=== PATIENT | male | born 1975 | race Two or more races ===

== ENCOUNTER 2018-03-24 21:42 | Emergency (ER) | payer MEDICAID ==
[2018-03-24] MEDS ORDERED: ONDANSETRON DISINTEGRATING 4 MG TAB PO ONE (22:05)
[2018-03-24 22:12] LABS: PLATELET COUNT 137 10^3/uL (150-400)
[2018-03-24] MEDS ORDERED: FAMOTIDINE 20 MG TAB PO ONE (22:43)
[2018-03-24] MEDS ORDERED: LORazepam 1 MG TAB PO ONE (22:43)
--- NOTE | 2018-03-24 22:47 | EDPHY ---
H & P Stated Complaint: M-1 HOLD, NEEDS MED CLEARANCE Source: Patient - Personal History Current Tetanus/Diphtheria Vaccine: Yes Current Tetanus Diphtheria and Acellular Pertussis (TDAP): Yes - Medical/Surgical History Hx Asthma: No Hx Chronic Respiratory Disease: No Hx Diabetes: No Hx Cardiac Disease: No Hx Renal Disease: No Hx Cirrhosis: No Hx Alcoholism: No Hx HIV/AIDS: No Hx Splenectomy or Spleen Trauma: No Other PMH: ANXIETY/ DEPRESSION, ETOH - Social History Smoking Status: Never smoked Time Seen by Provider: 03/24/18 22:12 HPI/ROS: HPI The patient presents with medical clearance, currently on an M1 hold for suicide attempt earlier today. The patient was evaluated at [facility] where M1 hold was initiated. He at about 4:00 a.m. This morning tried to hang himself in his car with a strap. He also took hydroxyzine approximately 5 tabs at 5:00 a.m.. He has been drinking heavily throughout the day today, and drink several shots of alcohol before entering into the [facility] crisis [facility]. He says he suffers from anxiety, was recently in a CSU. He says the last 1 month he has been dealing with increased stress at home. He is the father to a 9-month-old child and he is living with his in-laws and the mother of his child currently. The in-laws have multiple medical needs and seem both terminally ill. 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 He does complain of 1 episode of vomiting which happened just prior to arrival. He attributes this to his alcohol use. REVIEW OF SYSTEMS Constitutional: No fever, no chills. Eyes: No discharge. ENT: No sore throat. Cardiovascular: No chest pain, no palpitations. Respiratory: No cough, no shortness of breath. Gastrointestinal: No abdominal pain, 1 episode of vomiting. Genitourinary: No hematuria. Musculoskeletal: No back pain. Skin: No rashes. Neurological: No headache. PMHx: Anxiety Soc Hx: Alcohol use, cigarette smoker, family lives in [place], he is currently living in [place] PHYSICAL General Appearance: Alert, no distress Eyes: Pupils equal and round no pallor or injection ENT, Mouth: Mucous membranes moist Respiratory: There are no retractions, lungs are clear to auscultation Cardiovascular: Regular rate and rhythm Gastrointestinal: Abdomen is soft and non-tender, no masses, bowel sounds normal Neurological: A&O, moves all extremities Skin: Warm and dry, no rashes Musculoskeletal: Neck is supple non tender Extremities: symmetrical, full range of motion Psychiatric: Patient is oriented X 3, there is no agitation , tearful at times (Cheli Fuller) Constitutional: Initial Vital Signs Temperature (C) 36.5 C 03/24/18 21:47 Heart Rate 104 H 03/24/18 21:47 Respiratory Rate 18 03/24/18 21:47 Blood Pressure 148/97 H 03/24/18 21:47 O2 Sat (%) 97 03/24/18 21:47 O2 Delivery Mode Room Air Allergies/Adverse Reactions: No Known Allergies Allergy (Unverified 03/24/18 21:54) Home Medications: Medication Instructions Recorded NK [No Known Home Meds] 03/24/18 Medical Decision Making Differential Diagnosis: 43-year-old male with history of anxiety presents on M1 hold after suicide attempt. He hung himself with a strap in his car and also took a handful of hydroxyzine. This happened now about 16 hr ago. He has no shortness of breath or wheezing. He has no external signs of trauma of his neck. Given that he took the hydroxyzine so many hours ago, he is clear from this standpoint as well. We will treat his nausea and vomiting with antiemetics. We will treat him for any alcohol withdrawal and anxiety. Differential diagnosis includes progressive anxiety with suicidal ideation, acute stress response, substance abuse. 6:30 a.m.- The patient was monitored overnight and slept for much of it. He does not appear to be exhibiting any signs of alcohol withdrawal. He has not had any ongoing vomiting. He is medically clear and awaiting psychiatric evaluation. Anticipate at 7:00 a.m. The case will be signed out to Dr. Kc pending evaluation. (Cheli Fuller) 7:00 a.m.-I assumed care of this patient at shift change. He presents with suicidal ideation on an M1 hold. 10:30 a.m.-this patient has been seen by mental health and felt appropriate for admission to a CSU. Looking for disposition. 3:00 p.m.-signed over to Dr. Lara at shift change. Disposition pending. ( Huong Kc) Other Provider: I assumed care of this patient from Dr. Huong Kc at 3:00 p.m., change of shift. We are awaiting placement. Informed by the nursing staff that the patient has been accepted at [facility]. Patient was transferred at the 8:35 p.m.. He did receive 1 mg of Ativan secondary to anxiety at 6:45 p.m.. (Ariadna Lara) - Data Points Laboratory Results: Laboratory Results 03/24/18 21:50 03/24/18 21:50 Medications Given: Discontinued Medications Famotidine (Pepcid) 20 mg PO EDNOW ONE Stop: 03/24/18 22:44 Last Admin: 03/24/18 22:58 Dose: 20 mg Lorazepam (Ativan) 1 mg PO EDNOW ONE Stop: 03/24/18 22:44 Last Admin: 03/24/18 22:58 Dose: 1 mg Lorazepam (Ativan) 1 mg PO EDNOW ONE Stop: 03/25/18 06:21 Last Admin: 03/25/18 06:21 Dose: 1 mg Lorazepam (Ativan) 1 mg PO EDNOW ONE Stop: 03/25/18 10:36 Last Admin: 03/25/18 10:39 Dose: 1 mg Lorazepam (Ativan) 1 mg PO EDNOW ONE Stop: 03/25/18 18:43 Last Admin: 03/25/18 18:43 Dose: 1 mg Nicotine (Nicoderm Cq) 21 mg TD EDNOW ONE Stop: 03/24/18 22:55 Last Admin: 03/25/18 15:36 Dose: 21 mg Nicotine (Nicoderm Cq) 21 mg TD EDNOW ONE Stop: 03/25/18 15:34 Last Admin: 03/25/18 15:41 Dose: Not Given Ondansetron HCl (Zofran Odt) 4 mg PO EDNOW ONE Stop: 03/24/18 22:06 Last Admin: 03/24/18 22:10 Dose: 4 mg Departure - Departure Disposition: Other Psych, Not [place] Clinical Impression: Attempted suicide Condition: Fair Referrals: NONE *PRIMARY CARE P,. [Primary Care Provider] - As per Instructions
[2018-03-24] MEDS: NICOTINE 21 MG/24 HR PATCH TD ONE (22:58)
[2018-03-25] MEDS ORDERED: LORazepam 1 MG TAB ONE ×2 (06:19→18:41)
[2018-03-25] MEDS ORDERED: LORazepam 1 MG TAB PO ONE ×3 (06:20→18:42)
[2018-03-25] MEDS ORDERED: NICOTINE 21 MG/24 HR PATCH TD ONE (15:33)
[2018-03-25] MEDS: NICOTINE 21 MG/24 HR PATCH TD ONE (15:36)
[2018-03-25 18:45] VITALS: BP 147/88
== END 2018-03-25 20:53 ==
LOC: EDUNIT#
DX: T43.592A Poisoning by other antipsychotics and neuroleptics, intentional self-harm, initial encounter (principal); F17.210 Nicotine dependence, cigarettes, uncomplicated
CPT/HCPCS: 80305; G0480